=== PATIENT | female | born 1980 | race Caucasian/White ===

== ENCOUNTER 2017-03-01 00:37 | Emergency (ER) | payer BC ==
[2017-03-01] MEDS ORDERED: Ondansetron INJ* 2 MG/ML VIAL IV ONE (02:43)
[2017-03-01] MEDS: NS 0.9% 1000 ML* 2,000 ML IV ONE (03:15)
[2017-03-01 03:29] LABS: Hematocrit 41 % (35-47); Mean Corpuscular HGB Conc 34 g/dl (31-36); Mean Corpuscular Hemoglobin 29 pg (27-31); Mean Corpuscular Volume 86 fL (80-97); Mean Platelet Volume 7 um3 (7.4-10.4); Red Blood Count 4.79 10^6/ul (4.0-5.4); Red Cell Distribution Width 13 % (10.5-15); White Blood Count 14.6 10^3/ul (3.5-10.8)
[2017-03-01 03:35] LABS: Urine Bacteria Absent (Absent); Urine Bilirubin Negative (Negative); Urine Glucose Negative (Negative); Urine Nitrite Negative (Negative)
[2017-03-01 03:43] LABS: Albumin 4.5 g/dL (3.2-5.2); BUN/Creatinine Ratio 10.1 (8-20); C Reactive Protein 7.38 mg/L (< 5.00); Calcium 9.9 mg/dL (8.6-10.3); EGFR African American 104.7 (>60); EGFR Non-African American 81.4 (>60); Total Bilirubin 0.5 mg/dL (0.2-1.0); Total Protein 8.5 g/dL (6.4-8.9)
[2017-03-01] MEDS ORDERED: LORazepam INJ* 2 MG/ML 1 ML VIAL IV ONE (03:58)
[2017-03-01] MEDS ORDERED: Iohexol 300* (CONTRAST) 10 ML SDV IV ONE (05:03)
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
--- NOTE | 2017-03-01 08:39 | RAD ---
CLINICAL HISTORY: Nausea since February 22, 2017 hysterectomy. COMPARISON: None TECHNIQUE: Contrast enhanced CT examination of the abdomen and pelvis from the lung bases through the initial tuberosities. The patient received 100 mL Omnipaque 300 intravenously prior to imaging.The patient received oral contrast as well prior to imaging. FINDINGS: VISUALIZED LUNG BASES: The visualized lung bases are grossly clear. There is no pleural effusion. ABDOMEN AND PELVIS: The liver, spleen, pancreas and adrenal glands are grossly normal in appearance. The gallbladder is normal. The kidneys are normal in appearance without focal mass, calcification or signs of hydronephrosis. The oral contrast has progressed as far as the splenic flexure. The small and large bowel are not distended. The patient's normal appendix is identified in the right lower quadrant measuring 4 mm in diameter with contrast in the lumen (axial image 109). Extending from the splenic flexure down to the descending colon there is the appearance of colonic wall thickening (axial image 50 of 198). There is no gross retroperitoneal or mesenteric lymphadenopathy. The uterus is surgically absent. There is mild infiltration of the peritoneal fat in the pelvis. There is no large fluid collection. There is no evidence of abscess. The abdominal aorta and iliac arteries are normal in course and diameter. There are no sinister bone lesions. IMPRESSION: 1. Postsurgical changes status post hysterectomy without large fluid collection or evidence of abscess. 2. Questionable mild colonic wall thickening extending from the splenic flexure to the rectosigmoid colon. This appearance may simply be the consequence of underdistention but mild colitis is also considered.
[2017-03-01 09:41] VITALS: BP 137/85
[2017-03-01] MEDS ORDERED: Scopolamine 1.5 mg* PATCH TRANSDERM SCH (10:00)
--- NOTE | 2017-03-01 18:19 | ED ---
Adelina Guadalupe Thomas, scribed for Foreign Coronado MD on 03/01/17 at 0831 . Progress - Progress Note Progress Note: The patient is a sign out from Dr. Gonzáles at shift change pending CT Abd/Pel and US. She complains of constant nausea as well as intermittent vomiting. She denies any pain. She had a hysterectomy performed one week ago in [place] by Dr. Boggs. She is accompanied by her parents. PHYSICAL EXAM: VITAL SIGNS: Reviewed. GENERAL: Patient is a well-developed and nourished female who is lying comfortable in the stretcher. Patient is not in any acute respiratory distress. She is dehydrated. HEAD AND FACE: No signs of trauma. ~No ecchymosis, hematomas or skull depressions. No sinus tenderness. EYES: PERRLA, EOMI x 2, No injected conjunctiva, no nystagmus. EARS: Hearing grossly intact. Ear canals and tympanic membranes are within normal limits. MOUTH: Oropharynx within normal limits. NECK: Supple, trachea is midline, no adenopathy, no JVD, no carotid bruit, no c- spine tenderness, neck with full ROM. CHEST: Symmetric, no tenderness at palpation LUNGS: Clear to auscultation bilaterally. No wheezing or crackles. CVS: Regular rate and rhythm, S1 and S2 present, no murmurs or gallops appreciated. ABDOMEN: Soft, non-tender. No signs of distention. No rebound no guarding, and no masses palpated. Bowel sounds are normal. Positive bowel sounds. EXTREMITIES: FROM in all major joints, no edema, no cyanosis or clubbing. NEURO: Alert and oriented x 3. No acute neurological deficits. Speech is normal and follows commands. SKIN: Dry and warm Interpretation by [facility] radiologist Dr. [place] is 1. Postsurgical changes status post hysterectomy without large fluid collection or evidence of abscess. 2. Questionable mild colonic wall thickening extending from the splenic flexure to the rectosigmoid colon. This appearance may simply be the consequence of underdistention but mild colitis is also considered Interpretation by on-call radiologist is normal postoperative appearance of the pelvis. ED physician has read these reports and agrees. The patient was given Scopolamine patch which has worked for her nausea in the past. She was hydrated and her symptoms improved. After medications, her symptoms further improved. She is tolerating PO. Therefore, the patient will be discharged home with follow up by PCP. Course/Dx - Diagnoses Provider Diagnoses: Nausea The documentation as recorded by the Adelina castrejon Thomas accurately reflects the service I personally performed and the decisions made by Cliff garcia Walter, MD.
[2017-03-04] MEDS ORDERED: Scopolomine PATCH Remove* 1 NOTE MISC PATCH OFF SCH (10:00)
== END 2017-03-01 11:07 ==
LOC: ED 00:37
DX: R11.0 Nausea (principal); F41.9 Anxiety disorder, unspecified
CPT/HCPCS: 36415; 74177; 80053; 81003; 81015; 83605; 85025; 85730; 86140; 96374; 96375; 99285; A9270-GY; J2060; J2405; Q9967

== ENCOUNTER 2017-03-24 13:59 | Emergency (ER) | payer BC ==
[2017-03-24 16:28] LABS: Hematocrit 40 % (35-47); Hemoglobin 13.9 g/dl (12.0-16.0); Mean Corpuscular HGB Conc 34 g/dl (31-36); Mean Corpuscular Hemoglobin 30 pg (27-31); Mean Corpuscular Volume 87 fL (80-97); Mean Platelet Volume 7 um3 (7.4-10.4); Red Blood Count 4.67 10^6/ul (4.0-5.4); Red Cell Distribution Width 13 % (10.5-15); White Blood Count 9.8 10^3/ul (3.5-10.8)
[2017-03-24 16:48] LABS: Albumin 4.2 g/dL (3.2-5.2); BUN/Creatinine Ratio 13.8 (8-20); Calcium 9.5 mg/dL (8.6-10.3); EGFR African American 103.2 (>60); EGFR Non-African American 80.3 (>60); Globulin 3.5 g/dL (2-4); Magnesium 2.2 mg/dL (1.9-2.7); Potassium 4.2 mmol/L (3.5-5.0); Total Bilirubin 0.4 mg/dL (0.2-1.0); Total Protein 7.7 g/dL (6.4-8.9)
[2017-03-24 17:24] LABS: TSH (Thyroid Stimulating Horm) 0.69 mcIU/mL (0.34-5.60)
[2017-03-24 19:01] LABS: Urine Bilirubin Negative (Negative); Urine Glucose Negative (Negative); Urine Nitrite Negative (Negative)
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
[2017-03-24 19:37] VITALS: BP 128/87
== END 2017-03-24 19:51 | disposition home or self-care (01) ==
LOC: ED 13:59
DX: R53.81 Other malaise (principal); R53.83 Other fatigue; R42 Dizziness and giddiness; R11.0 Nausea; R53.1 Weakness; Z90.710 Acquired absence of both cervix and uterus; Z87.891 Personal history of nicotine dependence
CPT/HCPCS: 36415; 80053; 81003; 83605; 83735; 84443; 85025; 99282